=== PATIENT | male | born 1970 | race Asian ===

== ENCOUNTER 2017-05-03 19:09 | Emergency (ER) | payer OTHER ==
[2017-05-03 19:17] VITALS: BP 120/73; PULSE 104; TEMP 98.3; BMI 28.0
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
[2017-05-03] MEDS ORDERED: DIPHTH,PERTUSS(ACELL),TET 0.5 ML DISP.SYRIN IM ONE (21:00)
== END 2017-05-03 21:09 | disposition home or self-care (01) ==
LOC: FER 19:09
PROC: 3E0234Z Introduction of Serum, Toxoid and Vaccine into Muscle, Percutaneous Approach (ICD-10-PCS; principal; 2017-05-03)
DX: S70.12XA Contusion of left thigh, initial encounter (principal); S50.811A Abrasion of right forearm, initial encounter; V18.4XXA Pedal cycle driver injured in noncollision transport accident in traffic accident, initial encounter; Y93.55 Activity, bike riding; Y92.410 Unspecified street and highway as the place of occurrence of the external cause; I20.9 Angina pectoris, unspecified; E78.00 Pure hypercholesterolemia, unspecified
CPT/HCPCS: 73552-TC-LT; 90715; 99282-25

== ENCOUNTER 2017-06-02 22:35 | Emergency (ER) | payer OTHER ==
--- NOTE | 2017-06-02 22:38 | PDOC ---
History of Present Illness - General Chief Complaint: Eye Problem Stated Complaint: RT EYE INJURY Time Seen by Provider: 06/02/17 22:37 History Source: Patient Exam Limitations: No Limitations - History of Present Illness Initial Comments: 06/02/17 22:46 This is a 47-year-old male who comes in complaining of right eye pain secondary to being poked in the eye with a stick gardening earlier this afternoon. Patient denies any change in his vision. Patient's tetanus is up-to-date PAST MEDICAL HISTORY: no significant history PAST SURGICAL HISTORY: no significant history FAMILY HISTORY: no pertinant history SOCIAL HISTORY: Pt lives with family and is employed. MEDICATIONS: reviewed ALLERGIES: As per nursing notes Review of Systems General: No fevers or chills, no weakness, no weight loss HEENT: No change in vision. No sore throat,. No ear pain CardioVascular: No chest pain or shortness of breath Respiratory:No cough, or wheezing. Gastrointestinal: no nausea, vomitting, diarrhea or constipation, No rectal bleeding Genitourinary: No dysuria, hematuria, or frequency Musculoskeletal: No joint or muscle pain or swelling Neurologic: No headache, vertigo, dizziness or loss of consciousness Psychiatric: nor depression Skin: No rashes or easy bruising Endocrine: no increased thirst or abnormal weight change Allergic: no skin or latex allergy All other systems reviewed and normal GENERAL: The patient is awake, alert, and fully oriented, in no acute distress. HEAD: Normal with no signs of trauma. EYES: Pupils equal, round and reactive to light, extraocular movements intact, sclera anicteriic A there is some mild injection of the conjunctiva On fluoroscopy stain staining there is a small superficial corneal abrasion medial to the pupil. It is a linear abrasion approximately 4 mm in length. Ruddy's test is negative EXTREMITIES: Normal range of motion, no edema. NEUROLOGICAL: Normal speech, normal gait. PSYCH: Normal mood, normal affect. SKIN: Warm, Dry, normal turgor, no rashes or lesions noted. Assessment and plan: This is a 47-year-old male with a small corneal abrasion secondary to being poked in the eye while gardening. Patient given Tobrex and his tetanus is up-to-date. 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 Past History - Past Medical History Allergies/Adverse Reactions: Allergies Allergy/AdvReac Type Severity Reaction Status Date / Time No Known Allergies Allergy Unverified 05/03/17 19:10 Home Medications: Ambulatory Orders Aspirin [ASA -] 81 mg PO DAILY 05/03/17 Hypercholesterolemia: Yes - Suicide/Smoking/Psychosocial Hx Smoking History: Never smoked Hx Alcohol Use: Yes Drug/Substance Use Hx: No Substance Use Type: Alcohol *DC/Admit/Observation/Transfer Diagnosis at time of Disposition: Abrasion of right cornea Qualifiers: Encounter type: initial encounter Qualified Code(s): S05.01XA - Injury of conjunctiva and corneal abrasion without foreign body, right eye, initial encounter; S05.01XA - Injury of conjunctiva and corneal abrasion without foreign body, right eye, initial encounter - Discharge Dispostion Disposition: HOME Condition at time of disposition: Stable Admit: No - Patient Instructions Printed Discharge Instructions: Corneal Abrasion Additional Instructions: Tylenol or Motrin as needed for pain. Put the antibiotic drops in your eye 4 times a day for the next 5 days. Return to the emergency department immediately with ANY new, persistent or worsening symptoms. Continue any medications as previously prescribed by your physician. You should follow up with your eye doctor as soon as possible regarding today's emergency department visit. . Please make sure your doctor reviews the results of your emergency evaluation. Thank you for coming to the Emergency Department today for your care. It was a pleasure to see you today. Please note that your evaluation is INCOMPLETE until you follow-up with your doctor.
[2017-06-02 22:43] VITALS: BP 121/72; PULSE 62; TEMP 98.6; BMI 28.0
[2017-06-02] MEDS ORDERED: TOBRAMYCIN/DEXAMETHASONE OPHTH. OINTMENT 1 TUBE OD STA (22:45)
[2017-06-02] MEDS ORDERED: IBUPROFEN 600 MG TABLET (FP) PO ONE ×2 (22:50→22:52)
[2017-06-02] MEDS ORDERED: TOBRA 0.3%/DEXAMETH 0.1% OPHTHALMIC SUSP 2.5 ML BTL ONE (22:51)
[2017-06-02] MEDS ORDERED: TOBRAMYCIN/DEXAMETHASONE OPHTH. OINTMENT 1 TUBE ONE (22:55)
== END 2017-06-02 22:59 | disposition home or self-care (01) ==
LOC: FER 22:35
DX: S05.01XA Injury of conjunctiva and corneal abrasion without foreign body, right eye, initial encounter (principal); W20.8XXA Other cause of strike by thrown, projected or falling object, initial encounter; Y93.89 Activity, other specified; Y92.9 Unspecified place or not applicable
CPT/HCPCS: 99282-25

== ENCOUNTER 2017-07-03 22:17 | Emergency (ER) | payer OTHER ==
[2017-07-03] MEDS ORDERED: TETRACAINE 0.5% OPHTH SOLN 2 ML BOTTLE ONE (22:51)
[2017-07-03] MEDS ORDERED: FLUORESCEIN NA 1 EA STRIP ONE (22:52)
--- NOTE | 2017-07-03 23:08 | PDOC ---
History of Present Illness - General Chief Complaint: Pain, Acute Stated Complaint: SCRATCHED RIGHT CORNEA Time Seen by Provider: 07/03/17 22:20 - History of Present Illness Initial Comments: This otherwise healthy 47-year-old man presents with a history of right eye redness/irritation of the last 24 hours. Patient was seen here 1 month ago after he sustained a right corneal abrasion when branch hit his eye as he was gardening. He was treated with tobramycin ophthalmic solution with quick resolution of his symptoms. The patient did not follow-up with ophthalmology as advised. He had no interim ophthalmologic problems until yesterday. Patient states that he rubbed his eyes vigorously while taking a shower last evening. After this, he began to have irritation and redness in the right eye. There has been no symptoms on the left side. He did not have any crusting of eyelashes or purulent discharge. He denies visual changes. There is no history of fever or acute respiratory issues. Past History - Past Medical History Allergies/Adverse Reactions: Allergies Allergy/AdvReac Type Severity Reaction Status Date / Time No Known Allergies Allergy Verified 07/03/17 22:19 Home Medications: Ambulatory Orders Aspirin [ASA -] 81 mg PO DAILY 05/03/17 Tobramycin 0.3% Ophth Soln [Tobrex *Ophthalmic Solution*] 1 drop OD Q4HWA #1 bottle 07/03/17 Tobramycin 0.3% Ophth Soln [Tobrex Ophthalmic Solution -] 1 drop OD Q4HWA #1 bottle 07/03/17 Cardiac Disorders: Yes (ANGINA) Hypercholesterolemia: Yes - Suicide/Smoking/Psychosocial Hx Smoking History: Never smoked Hx Alcohol Use: Yes Drug/Substance Use Hx: No Substance Use Type: Alcohol Review of Systems - Review of Systems Able to Perform ROS?: Yes Comments:: 12 point review of systems is negative except for what is noted in the history of present illness *Physical Exam - Physical Exam Comments: GENERAL: Adult male, alert and oriented 3 in no acute distress HEAD: Normal with no signs of trauma. EYES: Right eye-moderately erythematous conjunctiva without crusting of eyelashes or purulent discharge Anterior chamber normal; pupil 3 mm, reactive and equal to the left pupil Left eye-conjunctiva, eyelash margin, anterior chamber, pupil all normal NECK: Normal range of motion, supple without lymphadenopathy, JVD, or masses. LUNGS: Breath sounds equal, clear to auscultation bilaterally. No wheezes, and no crackles. HEART:Regular rate and rhythm, normal S1 and S2 without murmur, rub or gallop. ABDOMEN:.normal bowel sounds No guarding,tenderness or rebound.No masses No distention. EXTREMITIES: Normal range of motion, no edema. No clubbing or cyanosis. No erythema, or tenderness. NEUROLOGICAL: Cranial nerves II through XII grossly intact. Normal speech. No focal neurological deficits. MUSCULOSKELETAL: Back non-tender to palpation, no CVA tenderness SKIN: Warm, Dry, normal turgor, no rashes or lesions noted. One drop of 1% tetracaine ophthalmologic solution placed in the right eye. Fluorescein testing strip placed in lower palpebral fissure. Under blue light, I was visualized: No evidence of corneal abrasion/laceration/ulcer. Medical Decision Making - Medical Decision Making 47-year-old man presents with a one-day history of erythema/irritation in the right eye. Patient had sustained a corneal abrasion in the side one-month ago. Examination reveals no abnormality except mild erythema of the conjunctiva of the right eye. Fluorescein exam is negative for corneal abrasion. Tobramycin ophthalmic solution will be prescribed and patient should follow-up with washroom cleaner within the next few days. If he notices crusting of eyelashes or has purulent discharge from the eye, he should not work tomorrow. Work documentation will be given to the patient. *DC/Admit/Observation/Transfer Diagnosis at time of Disposition: Pain, eye, right - Discharge Dispostion Disposition: HOME Condition at time of disposition: Stable - Prescriptions Prescriptions: Tobramycin 0.3% Ophth Soln [Tobrex Ophthalmic Solution -] 1 drop OD Q4HWA #1 bottle Tobramycin 0.3% Ophth Soln [Tobrex *Ophthalmic Solution*] 1 drop OD Q4HWA #1 bottle - Referrals Referrals: Saul Silva MD [Staff Physician] - Call tomorrow - Patient Instructions Printed Discharge Instructions: DI for Red Eye Additional Instructions: Tobramycin eyedrops: 1 drop in right eye every 4 hours while awake for the next week Use your own towel/washcloth no work tomorrow followup with Dr Silva/ Dr Coyle within 2 days - Post Discharge Activity Forms/Work/School Notes: Back to Work
== END 2017-07-03 23:14 | disposition home or self-care (01) ==
LOC: FER 22:17
DX: H57.11 Ocular pain, right eye (principal); Z79.82 Long term (current) use of aspirin
CPT/HCPCS: 99281-25

== ENCOUNTER 2018-04-24 10:50 | Day surgery (SDC) | payer OTHER ==
[2018-04-23 14:35] VITALS: BMI 28.6
[2018-04-24 12:18] VITALS: TEMP 97.8
[2018-04-24 13:08] VITALS: BP 127/74; PULSE 55
--- NOTE | 2018-04-25 14:03 | PATH ---
Surgical Pathology Report Patient Name: CIRILO ULLOA [facility]. Rec. #: [id number] /Age/Gender: 1970 (Age: 48) / M Account: [id number] Location: [facility]-ENDOSCOPY Taken: 04/24/2018 Received: 04/24/2018 Reported: 04/25/2018 Physicians: Troy Franco D.O. Specimen(s) Received A: BX GASTRIC POLYP B: BX BODY AND ANGULARIS C: BX CECUM POLYP Clinical History GERD, screening colonoscopy Postoperative diagnosis: Hiatal hernia, duodenitis, cecal polyp Final Diagnosis A. GASTRIC POLYP, BIOPSY: CONSISTENT WITH FUNDIC GLAND POLYP. IMMUNOSTAIN IS NEGATIVE FOR H. PYLORI ORGANISMS. B. BODY AND ANGULARIS, BIOPSY: GASTRIC MUCOSA WITH NO DIAGNOSTIC ABNORMALITIES. IMMUNOSTAIN IS NEGATIVE FOR H. PYLORI ORGANISMS. C. CECAL POLYP, BIOPSY: COLONIC MUCOSA SHOWING EOSINOPHILIC INFILTRATE (>70 EOSINOPHILS/HPF) WITH EOSINOPHILIC CRYPTITIS, AND REACTIVE LYMPHOID FOLLICLES. NO EOSINOPHILIC MICROABSCESS FORMATION OR ACUTE INFLAMAMTION PRESENT. NO PARASITES OR VIRAL INCLUSIONS SEEN. CLINICAL CORRELATION IS RECOMMENDED. Electronically Signed Bob Nicole M.D. Gross Description A. Received in formalin, labeled "biopsy gastric polyp" is a del castillo, irregular portion of soft tissue measuring 0.4 cm. in greatest dimension. The specimen is submitted in toto in one cassette. B. Received in formalin, labeled "biopsy angularis and body" are 2 del acstillo, irregular portions of soft tissue measuring 0.5 and 0.6 cm. in greatest dimension. The specimens are submitted in toto in one cassette. C. Received in formalin, labeled "biopsy cecal polyp" are 3 del castillo, irregular portions of soft tissue ranging from 0.2-0.4 cm. in greatest dimension. The specimens are submitted in toto in one cassette. 04/24/2018 saudi04/24/2018
== END 2018-04-24 13:10 | disposition home or self-care (01) ==
LOC: JASU-ENDO 10:50
PROVIDERS: ATTEND Internal Medicine Gastroenterology
PROC: 0DB98ZX Excision of Duodenum, Via Natural or Artificial Opening Endoscopic, Diagnostic (ICD-10-PCS; 2018-04-24)
PROC: 0DBH8ZX Excision of Cecum, Via Natural or Artificial Opening Endoscopic, Diagnostic (ICD-10-PCS; principal; 2018-04-24 12:45)
DX: Z12.11 Encounter for screening for malignant neoplasm of colon (principal); K64.8 Other hemorrhoids; D12.0 Benign neoplasm of cecum; K31.7 Polyp of stomach and duodenum; K52.81 Eosinophilic gastritis or gastroenteritis; K44.9 Diaphragmatic hernia without obstruction or gangrene; K29.80 Duodenitis without bleeding
CPT/HCPCS: 88305-TC; 88342-TC